=== PATIENT | female | born 1990 | race Caucasian/White ===

== ENCOUNTER 2024-01-03 18:08 | Emergency (ER) | payer OTHER, SELFPAY ==
--- NOTE | 2024-01-03 18:11 | ECG_ITS ---
Test Reason : CHEST PAIN Blood Pressure : / mmHG Vent. Rate : 074 BPM Atrial Rate : 074 BPM P-R Int : 138 ms QRS Dur : 080 ms QT Int : 400 ms P-R-T Axes : 005 -06 008 degrees QTc Int : 444 ms Normal sinus rhythm Minimal voltage criteria for LVH, may be normal variant ( R in aVL ) Borderline ECG When compared with ECG of 22-JUN-2018 10:25, No significant change was found Referred By: Generic ED Physician Electronically Signed By:MONISHA FAUSTIN
[2024-01-03 18:22] VITALS: BP 110/76; PULSE 82; RESP 16; TEMP 36.8; O2SAT 99; BMI 39.3
[2024-01-03 18:58] LABS: MANUAL DIFF FLAG NO
[2024-01-03 19:00] LABS: Basophils Percent Auto 0.3 % (0-2); Eosinophils Absolute Auto 0.1 X10*3/uL (0.0-0.4); Eosinophils Percent Auto 1.4 % (0-4); Hematocrit 33.3 % (37.0-47.0); Hemoglobin 10.8 g/dl (12.0-16.0); Imm Gran Abs Auto 0.03 X10*3/uL (0.00-0.03); Imm Gran Pct Auto 0.3 % (0.0-0.4); Lymphocytes Absolute Auto 2.4 X10*3/uL (1.2-4.9); Lymphocytes Percent Auto 25.1 % (20-40); Mean Corpuscular HGB Conc 32.4 g/dl (31.0-35.0); Mean Platelet Volume 11.4 fL (9.4-12.3); Monocytes Absolute Auto 0.6 X10*3/uL (0.1-1.2); Monocytes Percent Auto 6.1 % (2-11); Neutrophils Absolute Auto 6.3 x10*3/uL (2.0-8.3); Neutrophils Percent Auto 66.8 % (45-73); Platelet Count 263 X10*3/uL (160-400); Red Blood Count 4.16 X10*6/uL (4.20-5.50); Red Cell Distribution Width 15.9 % (11.0-16.0); White Blood Count 9.4 X10*3/uL (4.8-10.8)
[2024-01-03 19:15] LABS: IDNOW Serial# 58CA691E; Strep A Nucleic Acid Negative (Negative)
[2024-01-03 19:16] LABS: Alanine Aminotransferase 12 U/L (0-31); Albumin Level 4.2 g/dL (3.5-5.0); Alkaline Phosphatase 86 U/L (39-117); Anion Gap 9 (12-20); Aspartate Amino Transferase 17 U/L (5-31); Bilirubin Total 0.3 mg/dL (0.0-1.0); Blood Urea Nitrogen 14 mg/dL (9-16); Calcium 9.6 mg/dL (8.4-10.2); Carbon Dioxide 27 mmol/L (22-29); Chloride 108 mmol/L (96-108); Creatinine Clr Calc Pharmacy 116.8; Estimated Glomerular Filt Rate > 60; Glucose Random 116 mg/dL (60-115); Potassium 3.6 mmol/L (3.3-5.1); Sodium 140 mmol/L (135-145); Total Protein 8.1 g/dL (6.5-8.0)
[2024-01-03 19:27] LABS: Troponin-I High Sensitivity < 2.7 ng/L (<3.5-17.0)
[2024-01-03 20:19] LABS: Influenza A PCR NEGATIVE (Negative); Influenza B PCR NEGATIVE (Negative); Resp Syncy Virus RNA Qual PCR NEGATIVE (Negative); SARS COV2 PCR INHOUSE NEGATIVE (Negative)
== END 2024-01-03 20:13 | disposition left against medical advice (07) ==
PROVIDERS: Emergency Provider Emergency Medicine
DX: R07.9 Chest pain, unspecified (principal); R06.02 Shortness of breath
CPT/HCPCS: 0241U; 36415; 80053; 84484; 85025; 87651; 93005; 99283

== ENCOUNTER → 2024-01-03 18:11 | Outpatient (BNV) | payer SELFPAY | PROVIDERS: Emergency Provider Emergency Medicine; Visit Provider Internal Medicine | DX: R07.9 Chest pain, unspecified (principal) | CPT/HCPCS: 93010 ==

== ENCOUNTER 2024-02-03 21:42 | Emergency (ER) | payer MEDICAID, SELFPAY ==
--- NOTE | 2024-02-03 | ECG_ITS ---
Test Reason : CHEST PAIN Blood Pressure : / mmHG Vent. Rate : 064 BPM Atrial Rate : 064 BPM P-R Int : 138 ms QRS Dur : 082 ms QT Int : 428 ms P-R-T Axes : 008 -07 017 degrees QTc Int : 441 ms Normal sinus rhythm Minimal voltage criteria for LVH, may be normal variant ( R in aVL ) Borderline ECG When compared with ECG of 03-JAN-2024 18:16, No significant change was found Referred By: Generic ED Physician Electronically Signed By:Dc Prater
--- NOTE | ~2024-02-03 | CT_ITS ---
EXAMINATION: CT ABDOMEN AND PELVIS WITH CONTRAST CLINICAL INFORMATION: Gastric pain. History of gastric sleeve procedure. COMPARISON: None available. TECHNIQUE: Multidetector volumetric images were obtained from the superior aspect of the liver through the pubic symphysis following administration 85 mL of Omnipaque 350 intravenous contrast. Sagittal and coronal reformatted images were obtained on the technologist's workstation. Oral contrast: No This CT examination was performed using dose optimization techniques as appropriate, variously including the following: *Automated exposure control *Adjustment of mA and/or kV according to patient size (this includes techniques or standardized protocols for targeted exams where dose is matched to indication/reason for exam; i.e. extremities or head) *Use of iterative reconstruction technique DLP: 729 mGy-cm FINDINGS: LUNG BASES: The visualized lung bases are unremarkable. LIVER, GALLBLADDER, AND BILIARY TREE: The liver is normal in size, shape, and attenuation. No focal hepatic lesion or biliary ductal dilatation is present. The gallbladder is unremarkable with no evidence of radiopaque gallstones, gallbladder wall thickening, or obvious pericholecystic inflammatory changes. PANCREAS: Unremarkable. SPLEEN: Unremarkable. ADRENAL GLANDS: Unremarkable. KIDNEYS AND URETERS: The kidneys are normal in size, shape, and attenuation. No hydronephrosis, hydroureter, or calculi seen. No perinephric stranding. BLADDER: Unremarkable. GASTROINTESTINAL TRACT: There has been a prior gastric sleeve procedure. There is no evidence for bowel obstruction. ABDOMINAL WALL: No significant hernia is appreciated. LYMPH NODES: Normal. VASCULAR: Unremarkable. PELVIC VISCERA: Unremarkable. OSSEOUS STRUCTURES: Unremarkable. CT/CT abdomen pelvis w IV con IMPRESSION: 1. No acute abnormality within the abdomen or pelvis. 2. Status post gastric sleeve procedure. No evidence for bowel obstruction. Fleischner guidelines were followed.
[2024-02-03 22:13] VITALS: BP 148/76; PULSE 71; RESP 20; TEMP 37.1; O2SAT 100; BMI 37.3
[2024-02-03 22:41] LABS: Basophils Percent Auto 0.2 % (0-2); Eosinophils Percent Auto 0.2 % (0-4); Hematocrit 32.9 % (37.0-47.0); Hemoglobin 10.7 g/dl (12.0-16.0); Imm Gran Abs Auto 0.09 X10*3/uL (0.00-0.03); Imm Gran Pct Auto 0.6 % (0.0-0.4); Lymphocytes Absolute Auto 1.3 X10*3/uL (1.2-4.9); Lymphocytes Percent Auto 8.9 % (20-40); MANUAL DIFF FLAG NO; Mean Corpuscular HGB Conc 32.5 g/dl (31.0-35.0); Mean Corpuscular Hemoglobin 25.9 pg (27.0-33.0); Mean Corpuscular Volume 79.7 fL (80.0-98.0); Mean Platelet Volume 10.5 fL (9.4-12.3); Monocytes Absolute Auto 0.9 X10*3/uL (0.1-1.2); Monocytes Percent Auto 6.2 % (2-11); Neutrophils Absolute Auto 12.5 x10*3/uL (2.0-8.3); Neutrophils Percent Auto 83.9 % (45-73); Platelet Count 263 X10*3/uL (160-400); Red Blood Count 4.13 X10*6/uL (4.20-5.50); Red Cell Distribution Width 15.2 % (11.0-16.0); White Blood Count 14.9 X10*3/uL (4.8-10.8)
[2024-02-03 22:56] LABS: Alanine Aminotransferase 25 U/L (0-31); Albumin Level 4.4 g/dL (3.5-5.0); Alkaline Phosphatase 111 U/L (39-117); Anion Gap 12 (12-20); Aspartate Amino Transferase 59 U/L (5-31); Bilirubin Total 0.3 mg/dL (0.0-1.0); Blood Urea Nitrogen 13 mg/dL (9-16); Calcium 9.2 mg/dL (8.4-10.2); Carbon Dioxide 24 mmol/L (22-29); Chloride 107 mmol/L (96-108); Creatinine Clr Calc Pharmacy 113.4; Estimated Glomerular Filt Rate > 60; Glucose Random 131 mg/dL (60-115); Lipase 18 U/L (8-78); Magnesium 1.8 mg/dL (1.6-2.6); Potassium 3.6 mmol/L (3.3-5.1); Sodium 139 mmol/L (135-145)
[2024-02-04 01:55] VITALS: BP 131/75; RESP 17; TEMP 36.9
[2024-02-04 04:00] VITALS: BP 106/64; PULSE 79; RESP 16; TEMP 36.6; O2SAT 95
--- NOTE | 2024-02-04 04:06 | ED_ITS ---
HPI - Abdominal Pain General Chief Complaint: Abdominal Pain Stated Complaint: Upper abd pain, hx gastric sleeve surgery Time Seen by Provider: 02/04/24 03:55 Source: patient Mode of arrival: ambulatory Limitations: no limitations History of Present Illness ED Provider: Dr. Johnathan Segura HPI narrative: 33-year-old female with a history of gastric sleeve surgery 10/14/2023 at [facility] who presents emergency department for evaluation of sudden onset of sharp, stabbing epigastric pain. The pain started around 19:30 hours. She states the pain is been constant but waxing and waning intensity. She states that the pain can be a severe 10/10. She has had persistent nausea with 4 episodes of vomiting. She denies feeling bloated or distended. She states she has had good bowel movements daily. She states that she may have had 1 or 2 episodes of abdominal pain in the past but never episodes that have persisted this long. Fever, chills, chest pain, shortness of breath, frequency, urgency or dysuria. She states that her last menstrual period was in the beginning of January and she states that she has not . Related Data Previous Rx's ?Medication ?Instructions ?Recorded famotidine 20 mg tablet 20 mg PO DAILY #30 tabs 02/04/24 morphine 15 mg immediate release 15 mg PO Q6H PRN pain #10 tabs 02/04/24 tablet Allergies Allergy/AdvReac Type Severity Reaction Status Date / Time No Known Allergies Allergy Verified 02/03/24 22:16 Review of Systems Review of Systems Yes all other systems are reviewed and are negative PMFSH Social History Social History Smoked in Last 30 Days: No Advance Directives: No Advance Directives Information Provided: Yes Do you have a plan to hurt others: No Plan Physical Exam ED Vital Signs: Vital Signs - 24 hr 02/03/24 22:13 02/04/24 01:55 02/04/24 04:00 Temperature 98.8 F 98.5 F 97.9 F Pulse Rate 71 79 Respiratory Rate 20 17 16 Blood Pressure 148/76 H 131/75 106/64 Pulse Oximetry 100 95 Oxygen Delivery Method Room Air Room Air Room Air 02/04/24 06:00 Temperature 97.9 F Pulse Rate 55 Respiratory Rate 16 Blood Pressure 106/54 L Pulse Oximetry 98 Oxygen Delivery Method Room Air BMI result Body Mass Index 37.3 Vital signs revealed an elevated blood pressure of 148/76 Exam: General: Awake, alert in no distress Head: Normocephalic, atraumatic EENT: PERRL, Lids normal, sclera normal, conjunctiva normal, nose normal , ears normal, throat without erythema or exudates Neck: Supple, no adenopathy Lung: breath sounds symmetric, no wheezing, rales or rhonchi Chest: symmetric movement, nontender Heart: regular rate and rhythm, normal S1, S2 no murmurs or rubs Abdomen: soft, moderate epigastric tenderness,, nondistended, normal bowel sounds Back: no vertebral tenderness, no CVAT Extremities: no deformities, moves all extremities symmetrically Neuro: Awake, alert, oriented, normal speech, cranial nerves intact, moves all extremities symmetrically Psych: Pleasant, cooperative Medical Decision Making Medical Decision Making MDM Narrative: 33-year-old female with a history of gastric sleeve surgery 10/14/2023 at [facility] who presents emergency department for evaluation of sudden onset of sharp, stabbing epigastric pain which began around 19:30 hours. Patient had associated nausea and 4 episodes of vomiting. She states she has had normal bowel movements. She denies feeling distended or bloated. She denied fever, chills, frequency, urgency or dysuria. Vital signs revealed an elevated blood pressure otherwise unremarkable. Abdominal exam revealed epigastric tenderness otherwise unremarkable. Differential diagnosis: ?Includes but is not limited to gastritis, bowel obstruction, internal hernia, anemia, electrolyte abnormalities, urinary tract infection, related abdominal pain Following evaluation was ordered: CBC, CMP, lipase, magnesium, urinalysis, quantitative beta-hCG, CT of the abdomen pelvis with IV, Patient was initially treated with the following: IV insert, normal saline x1 L, morphine 4 mg IV, Zofran 4 mg IV Course: 04:12 My independent interpretation patient's laboratory evaluation is as follows: Elevated white blood count 24477. Microcytic anemia with an H&H of 10 and 32.9 similar microcytic anemia in the past. Glucose elevated 131. AST elevated 59. Lipase was normal. Urinalysis and quantitative beta-hCG 06:[address] scan of the abdomen pelvis revealed no acute finding for the patient's pain. The patient will be treated for possible gastritis with Pepcid 20 mg once a day for 1 month. She was also advised to take Tylenol for pain and for pain not relieved by Tylenol she was prescribed morphine. Patient was also given prescription for ondansetron for her nausea and vomiting Admission/Observation Consideration of admission/observation: Escalation of care including admission/observation considered Lab Data MDM Lab Attestation statement: I reviewed the patient's lab results. 02/03/24 22:34 02/03/24 22:34 Labs: Lab Results 02/03/24 02/04/24 Range/Units 22:34 04:14 WBC 14.9 H (4.8-10.8) X10*3/uL RBC 4.13 L (4.20-5.50) X10*6/uL Hgb 10.7 L (12.0-16.0) g/dl Hct 32.9 L (37.0-47.0) % MCV 79.7 L (80.0-98.0) fL MCH 25.9 L (27.0-33.0) pg MCHC 32.5 (31.0-35.0) g/dl RDW 15.2 (11.0-16.0) % Plt Count 263 (160-400) X10*3/uL MPV 10.5 (9.4-12.3) fL Immature Gran % (Auto) 0.6 H (0.0-0.4) % Neut % (Auto) 83.9 H (45-73) % Lymph % (Auto) 8.9 L (20-40) % [place] % (Auto) 6.2 (2-11) % Eos % (Auto) 0.2 (0-4) % Baso % (Auto) 0.2 (0-2) % Lymph # (Auto) 1.3 (1.2-4.9) X10*3/uL [place] # (Auto) 0.9 (0.1-1.2) X10*3/uL Eos # (Auto) 0.0 (0.0-0.4) X10*3/uL Baso # (Auto) 0.0 (0.0-0.2) X10*3/uL Abs Immat Gran (auto) 0.09 H (0.00-0.03) X10*3/uL Absolute Neuts (auto) 12.5 H (2.0-8.3) x10*3/uL Absolute Nucleated RBC 0.000 (0.0-0.012) X10*3/uL Nucleated RBC % (auto) 0.0 (0.0-0.2) /100WBC Sodium 139 (135-145) mmol/L Potassium 3.6 (3.3-5.1) mmol/L Chloride 107 (96-108) mmol/L Carbon Dioxide 24 (22-29) mmol/L Anion Gap 12 (12-20) BUN 13 (9-16) mg/dL Creatinine 0.74 (0.5-1.4) mg/dL Estim Creat Clear Calc 113.4 Estimated GFR > 60 Random Glucose 131 H (60-115) mg/dL Calcium 9.2 (8.4-10.2) mg/dL Magnesium 1.8 (1.6-2.6) mg/dL Total Bilirubin 0.3 (0.0-1.0) mg/dL AST 59 H (5-31) U/L ALT 25 (0-31) U/L Alkaline Phosphatase 111 (39-117) U/L Total Protein 8.0 (6.5-8.0) g/dL Albumin 4.4 (3.5-5.0) g/dL Lipase 18 (8-78) U/L Beta HCG, Quant < 2 mIU/mL Urine Color Dark Yellow Urine Appearance Cloudy Urine pH 6.0 (5.0-9.0) Ur Specific [place] >= 1.030 H (1.005-1.025) Urine Protein Trace (Neg-Trace) mg/dL Urine Glucose (UA) Negative (Negative) mg/dL Urine Ketones 80 (Negative) mg/dL Urine Blood Negative (Negative) Urine Nitrite Negative (Negative) Ur Leukocyte Esterase Small (1+) H (Negative) Urine RBC 0-2 (0-2) /HPF Urine WBC 21-50 H (0-5) /HPF Ur Squamous Epith Cells 11-20 (0-2) /HPF Urine Bacteria 1+ (None Seen) Hyaline Casts 3-5 (0-2) /LPF Independent Interpretation I performed an independent interpretation of an: EKG Interpretation: My interpretation patient's 12 EKG done at 23:14 hours is as follows: Normal sinus rhythm rate of 64, normal AR interval, QRS duration QTC interval, no ST segment elevation, no ST segment depression, inverted T-waves in lead 3, V1 and V2, no PACs, no PVCs Radiology Impression Discussion of test interpretation with radiology: I have reviewed the radiologist's reading. Radiologist Impression: CT abdomen pelvis w IV con IMPRESSION: 1. No acute abnormality within the abdomen or pelvis. 2. Status post gastric sleeve procedure. No evidence for bowel obstruction. Fleischner guidelines were followed. Dictated By: Robbie Guerrero MD Medications Administered Discontinued Medications Generic Name Dose Route Start Last Admin Trade Name Glory PRN Reason Stop Dose Admin Sodium Chloride 1,000 mls @ 999 mls/hr 02/04/24 04:06 02/04/24 04:13 Ns IV 02/04/24 05:06 999 mls/hr .Q1H1M STA Administration Iohexol 85 ml 02/04/24 04:58 02/04/24 04:59 Iohexol 350 Mg/Ml 100 Ml Infus..Btl IV 02/04/24 04:59 85 ml ONCE ONE Administration Morphine Sulfate 4 mg 02/04/24 04:06 02/04/24 04:15 Morphine Sulfate 4 Mg/Ml Cartridge IVPUSH 02/04/24 04:07 4 mg ONCE STA Administration Protocol Ondansetron HCl 4 mg 02/04/24 04:06 02/04/24 04:15 Ondansetron Hcl 4 Mg/2 Ml Vial IVPUSH 02/04/24 04:07 4 mg ONCE ONE Administration Discharge Plan Discharge Clinical Impression: Nausea & vomiting Abdominal pain Qualifiers: Abdominal location: epigastric Qualified Code(s): R10.13 - Epigastric pain Patient Disposition: Home, Self-Care Instructions: Abdominal Pain (ED) Additional Instructions: Your blood work was unremarkable Your EKG was normal The CT scan of your abdomen pelvis did not reveal any clear cause for your abdominal pain which is reassuring. Your pain may be caused by too much inflammation in your stomach (gastritis) Take Pepcid (famotidine) 20 mg pills, 1 pill once a day for 2 weeks. ?This medication reduces the amount of acid that your stomach produces and will help the inflammation in your stomach heal. Take Tylenol (acetaminophen) 2 pills every 6 hours as needed for pain. For pain not relieved by Tylenol take morphine 15 mg pills, 1 pill every 6 hours as needed for pain. This medication will make you sleepy, do not drive or work while taking this medication. Morphine is a narcotic medication and can be addicting. If you are concerned about addiction you can ask the pharmacist for less pills or do not get this prescription filled. Follow-up with your doctor in 2 days. Please return to the emergency department if your symptoms get worse or if you develop any symptoms that are concerning to you. Prescriptions: New famotidine 20 mg tablet 20 mg PO DAILY Qty: 30 0RF morphine 15 mg tablet 15 mg PO Q6H PRN (Reason: pain) Qty: 10 0RF Rx Instructions: The patient may ask for partial fill; Partial Fill upon patient request. Print Language: Tamazight
[2024-02-04] MEDS: 0.9 % Sodium Chloride 1,000 ML 999 ML IV (04:13)
[2024-02-04] MEDS: Morphine Sulfate 4 MG/ML CARTRIDGE IVPUSH (04:15)
[2024-02-04] MEDS: ondansetron HCL 4 MG/2 ML VIAL IVPUSH (04:15)
[2024-02-04 04:23] LABS: Appearance Urine Cloudy; Color Urine Dark Yellow; Glucose Urine UA Negative (Negative); Leukocyte Esterase Urine Small (1+) (Negative); Nitrite Urine Negative (Negative); Specific Gravity - Urine >= 1.030 (1.005-1.025); UMIC TRIGGER UACC YES; Urine Blood Negative (Negative); Urine Ketones 80 mg/dL (Negative); Urine Protein Trace mg/dL (Neg-Trace)
[2024-02-04 04:28] LABS: Bacteria Urine 1+ (None Seen); RBC Urine 0-2 /HPF (0-2); UACC Culture Trigger YES; WBC Urine 21-50 /HPF (0-5)
[2024-02-04 04:36] LABS: HCG Quantitative < 2 mIU/mL
[2024-02-04] MEDS: iohexoL 350 MG/ML 100 ML INFUS..BTL 85 ML IV (04:59)
[2024-02-04 06:00] VITALS: BP 106/54; PULSE 55; RESP 16; TEMP 36.6; O2SAT 98
[2024-02-04 06:44] VITALS: BP 138/82; PULSE 60; RESP 17; TEMP 36.7; O2SAT 100
== END 2024-02-04 06:49 | disposition home or self-care (01) ==
PROVIDERS: Emergency Provider Emergency Medicine Emergency Medical Services
DX: R10.13 Epigastric pain (principal); R11.2 Nausea with vomiting, unspecified; R10.2 Pelvic and perineal pain; Z79.899 Other long term (current) drug therapy
CPT/HCPCS: 36415; 74177; 80053; 81001; 83690; 83735; 84702; 85025; 87086; 93005; 96361; 96374; 96375; 99284; 99285; J2270; J2405; Q9967

== ENCOUNTER → 2024-02-03 23:14 | Outpatient (BNV) | payer MEDICAID, SELFPAY | PROVIDERS: Emergency Provider Emergency Medicine Emergency Medical Services; Visit Provider Internal Medicine Cardiovascular Disease | DX: R07.9 Chest pain, unspecified (principal) | CPT/HCPCS: 93010 ==